=== PATIENT | female | born 1965 | race Caucasian/White ===

== ENCOUNTER 2025-01-28 17:50 | Outpatient (REF) | payer OTHER, SELFPAY ==
--- NOTE | ~2025-01-28 | MR_ITS ---
EXAMINATION: MR BRAIN WITHOUT CONTRAST CLINICAL INFORMATION: MS monitor COMPARISON: None available. TECHNIQUE: MRI of the brain was obtained using routine sequences without contrast. FINDINGS: No restricted diffusion. No acute intracranial hemorrhage, mass effect, midline shift, hydrocephalus or herniation. Bilateral, multifocal, patchy, perpendicularly oriented to the corpus callosum deep periventricular white matter hyperintense T2 FLAIR signal involving centrum semiovale and metzger radiata both cerebral hemispheres and to a lesser extent shelli and right middle cerebral peduncle. Delgado-white matter differentiation is normal. Craniocervical junction is intact with normal position of the cerebellar tonsils. Sellar/suprasellar region demonstrated no signal abnormality or gross masses. Flow-void signal within the main cerebral vessels is normal. Prominence of the extra-axial CSF spaces cerebral sulci and ventricles. MR/MR head/brain wo con IMPRESSION: Bilateral extensive supratentorial and to a lesser extent infratentorial compartment demyelinating plaques. No acute brain abnormality.. Electronically signed by: César Koch MD 01/29/2025 07:03 AM EDT
--- NOTE | ~2025-01-28 | MR_ITS ---
EXAMINATION: MR CERVICAL SPINE WITHOUT CONTRAST CLINICAL INFORMATION: MS monitor COMPARISON: None available. TECHNIQUE: MRI of the cervical spine was obtained using routine sequences without contrast. FINDINGS: No bone marrow STIR signal abnormality. Craniocervical junction is intact with normal position of the cerebellar tonsils. Multifocal, patchy, hyperintense T2 STIR signal abnormality throughout the shelli, medulla oblongata, and cervical spinal cord and posteriorly extending to the upper thoracic spinal cord. These signal abnormality is scattered in random involving the ventral, lateral and dorsal aspect of the spinal cord. Multilevel disc desiccation decreased intervertebral disc height pronounced at C5-6. There is a 1 mm anterolisthesis C4-5 and C6-7. There is buckling deformity of the dorsal aspect of the thecal sac secondary to hypertrophy of the ligamentum flavum at C5-6 and C6-7. C2-3: Right-sided disc osteophyte compresses formation. No central spinal canal or neuroforamina stenosis. C3-4: Broad-based disc osteophyte compresses formation. No central spinal canal or neuroforamina stenosis. C4-5: Broad-based disc osteophyte complex formation without central spinal canal or neuroforamina stenosis. C5-6: Left subarticular disc osteophyte complex formation without central spinal canal stenosis. Left neural foramen narrowing on a degenerative basis. C6-7: Broad-based disc osteophyte complex formation. No central spinal canal stenosis. Bilateral neuroforamina narrowing left greater than the right side. Bilateral small perineural cysts. C7-T1: No central spinal canal or neuroforamina stenosis. No prevertebral compartment hematoma, mass or fluid collection. Flow-void signal within the main vessels is normal. Left vertebral artery is slightly dominant. There is a 10 mm mixed signal abnormality nodular lesion in the posterior left thyroid lobe.. MR/MR cervical spine wo con IMPRESSION: Extensive and diffuse demyelinating plaques throughout brainstem and spinal cord. Multilevel cervical spondylosis, pronounced at C5-6 and C6-7 levels resulting in left neuroforamina narrowing. Electronically signed by: César Koch MD 01/29/2025 07:12 AM EDT
--- OUTSIDE RECORDS SUMMARY | 2025-01-28 19:28 | XMS_ITS | Clinical Summary ---
Author Organization [facility] Address [address] [place] [id number] Care Team Providers Care Customer Development Manager Name Role Phone Lucina Keene MD Primary Care Provider [phone] Allergies No known active allergies Medications GILENYA 0.5 mg capsule 9 Active diphenhydrAMINE (UNISOM SLEEPGELS) 50 mg capsule Unisom Sleepgels Active vitamin X61-[id number] acid 0.5-1 mg tablet Vitamin B12 Ac tive cholecalciferol , vitamin D3, (VITAMIN D3) 1,000 unit capsule Vitamin D3 Active multivit-minera ls-ferrous fum (MULTI VITAMIN) 9 mg iron/15 mL liquid Multi Vitamin gnc active pack Active magnesium oxide 200 mg tablet,chewable magnesium Acti ve coenzyme Q10 200 mg/gram powder Take 100 mg by mouth. Active biotin 1 mg capsule Take by mouth. Activ e Social History Tobacco Use Types Packs/Day Years Used Date Smoking Tobacco: Former Smokeless Tobacco: Former Alcohol Use Standard Drinks/Week Comments Yes 0 (1 standard drink = 0.6 oz pur e alcohol) rarely Comments No Sex and Gender Information Value Date Recorded Sex Assigned at Not on file Legal Sex Female 12:50 PM EDT Gender Identity Not on file Sexual Orientation Not on file Last Filed Vital Signs Vital Sign Reading Time Taken Comments Blood Pressure 102/70 08/08/2018 9:44 AM EDT Pulse 73 08/08/2018 9:44 AM EDT Temperature - - Respiratory Rate - - Oxygen Saturation - - Inhaled Oxygen Concentration - - Weight 61.2 kg (135 lb) 08/08/2018 9:44 AM EDT Height 177.8 cm (5' 10 ) 08/08/2018 9:44 AM EDT Body Mass Index 19.37 08/08/2018 9:44 AM EDT Plan of Treatment Health Maintenance Due Date Last Done Comments Breast Cancer Screening 1964 CT Colonography 1964 Colonoscopy 1964 Colorectal Cancer Screening 1964 FIT-DNA (Cologuard) 1964 FIT 1964 FOBT 1964 Flex Sigmoidoscopy - 5y 1964 HIV Screening 1964 DTaP,Tdap,and Td Vaccines (1 - Tdap) 1982 Pap Smear 1985 Cervical Cancer Screening 1994 HPV/Cotest 1994 Pneumococcal Vaccine, 50+ Ye ars (1 of 1 - PCV) 2014 Zoster Vaccines (1 of 2) 2014 COVID-19 Vaccine (1 - 2023-2 5 season) 2025 Influenza Vaccine (#1) 2025 HPV Vaccines Aged Out No longer eligi ble based on patient's age to complete this topic Hepatitis A Vaccines Aged Out No long er eligible based on patient's age to complete this topic MMR Vaccines Aged Out No longer eligi ble based on patient's age to complete this topic Meningococcal Vaccine Aged Out No emmanuel mychal eligible based on patient's age to complete this topic Insurance [facility] Care Teams Customer Development Manager Relationship Specialty Start Date End Date Lucina Keene MD [address] [place] [id number] PCP - General Internal Medicine 08/07/18
--- OUTSIDE RECORDS SUMMARY | 2025-01-28 19:28 | XMS_ITS | Clinical Summary ---
Author Organization [facility] Address [address] [place] [address] Care Team Providers Care Industrial Equipment Mechanic Name Role Phone Jhonatan Resendez MD Primary Care Provider [phone] Allergies No known active allergies Medications Medication Sig Dispensed Refills Start Date End Date Status DOXYLAMINE SUCCINATE, SLEEP, PO Take by mouth. 0 Active Melatonin 1 MG TABS tablet Take 10 tablets (10 mg total) by mouth every night at bedtime. 0 Active Probiotic Product (PROBIOTIC DAILY PO) Take by mouth. 0 Active COENZYME Q-10 PO Take 100 mg by mouth. 0 Active cholecalciferol (VITAMIN D3) 1000 UNITS tablet Take 5 tablets (5,000 Units total) by mouth daily. 0 Active vitamin B-12 (CYANOCOBALAMIN) 100 MCG tablet Take 0.5 tablets (50 mcg total) by mouth daily. 0 Active Grimes-3 Fatty Acids (OMEGA 3 PO) Take by mouth. 0 Active magnesium citrate 1.745 GM/30ML SOLN oral solution Take 300 mL by mouth once. 0 Active Biotin 1 MG CAPS Take by mouth. 0 Acti ve Ascorbic Acid 100 MG CHEW Chew by mouth. 0 Active solifenacin (VESICARE) 5 MG tablet Take 1 tablet (5 mg total) by mouth two hours before bedtime. After 1 month, increase dose to 2 tablets (10 mg total) by mouth two hours before bedtime. 90 tablet 1 12/12/2023 Active Fingolimod HCl 0.5 MG CAPSIndications:Mult iple sclerosis (HCC) TAKE 1 CAPSULE BY MOUTH DAILY PLEASE GET LABS FOR FUTURE REFILLS 30 capsule 0 03/05/2024 Active Active Problems Problem Noted Date Diagnosed Date Anxiety 06/13/2020 Family history of malignant neoplasm of ovary Herpes zoster 12/19/2019 Multiple sclerosis 06/14/2016 Tingling sensation Overview: legs (bileteral) when I look my head down. Family History Medical History Relation Name Comments Heart attack Father Shan Wade Multiple sclerosis Maternal Aunt Cristin Cancer Mother Aud Relation Name Status Comments Father Shan Wade Alive Maternal Aunt [place] Mother Aud Sister Rowena Alive Social History Tobacco Use Types Packs/Day Years Used Date Smoking Tobacco: Former Smokeless Tobacco: Never Alcohol Use Standard Drinks/Week Comments Yes 0 (1 standard drink = 0.6 oz pur e alcohol) sometimes Sex and Gender Information Value Date Recorded Sex Assigned at Not on file Gender Identity Not on file Sexual Orientation Not on file Job Start Date Occupation Industry Not on file Not on file Not on file Last Filed Vital Signs Vital Sign Reading Time Taken Comments Blood Pressure 106/70 11/23/2023 10:30 AM EDT Pulse 65 11/23/2023 10:30 AM EDT Temperature 36.1 C (97 F) 11/23/2023 10:30 AM EDT Respiratory Rate 16 11/12/2018 2:12 PM EDT Oxygen Saturation 99% 09/20/2017 2:2 4 PM EDT Inhaled Oxygen Concentration - - Weight 59 kg (130 lb) 11/23/2023 10:30 AM EDT pt declined taking a weight, pt gave last known weight Height 175.3 cm (5' 9 ) 11/23/2023 10:3 0 AM EDT Body Mass Index 19.2 11/23/2023 10:30 AM EDT Plan of Treatment Health Maintenance Due Date Last Done Comments Hepatitis C Screening 1964 COVID-19 Vaccine (#1) 1964 Depression Screening 1976 Preventative Health Evaluation 1982 DTap / Tdap / Td (1 - Tdap) 1983 Cervical Cancer Screening (P ap Smear) 1985 Colon Cancer Screening (Colonoscopy) 2009 Breast Cancer Screening (Mammogram) 2014 Shingrix-Zoster Vaccine (1 of 2) 2014 Influenza Vaccine (#1) 2025 RSV Adult > 60+ Yrs or Pregn ant (1 - 1-dose 75+ series) 2039 Hepatitis B Vaccines Aged Out No long er eligible based on patient's age to complete this topic Pneumococcal Vaccine Aged Out No long er eligible based on patient's age to complete this topic RSV Ped < 20 months Aged Out No longe r eligible based on patient's age to complete this topic Care Teams Industrial Equipment Mechanic Relationship Specialty Start Date End Date Jhonatan Resendez MD PCP - General Family Medicine 02/10/16
== END 2025-01-28 17:51 | disposition home or self-care (01) ==
LOC: HO.MRI 17:50
PROVIDERS: Visit Provider Student in an Organized Health Care Education/Training Program
DX: G35 Multiple sclerosis (principal)
CPT/HCPCS: 70551; 72141

== ENCOUNTER → 2025-01-28 18:00 | Outpatient (BNV) | payer OTHER, SELFPAY | PROVIDERS: Visit Provider Radiology Diagnostic Radiology | DX: M47.22 Other spondylosis with radiculopathy, cervical region (principal); G35 Multiple sclerosis | CPT/HCPCS: 70551; 72141 ==

== ENCOUNTER 2025-05-05 11:24 | Outpatient (AMB) | payer OTHER, SELFPAY ==
--- NOTE | 2025-05-05 11:26 | A.OFFPC_ITS ---
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 Multiple Sclerosis: The patient was diagnosed with multiple sclerosis approximately 10 years ago after presenting with double vision when looking to the left. An MRI confirmed the diagnosis at that time. She has been asymptomatic since the initial event, except for urinary symptoms, and reports no disease advancement. She has been taking fingolimod (Gilenya) for about 8 years, starting a couple of years after her diagnosis. There is a significant family history of MS, with both her maternal and paternal aunts affected. Urinary Incontinence: The patient experiences urinary leakage, particularly when running, which she considers to be her only active symptom of MS. She also reports nocturia, waking at least six times per night to urinate. She was previously evaluated by a urologist and a urogynecologist. She was offered medication and bladder Botox injections but declined both treatments due to concerns about potential side effects, including the risk of urinary retention requiring catheterization. Hand Tremor: The patient reports the new onset of a slight shake in her left hand, which started a couple of weeks ago. She is a coffee drinker but reports no change in her consumption amount. Chronic Insomnia: The patient takes Unisom for sleep and has been doing so for many years out of habit. With the medication, she reports sleeping 8 hours per night. She had a sleep study performed approximately 8 years ago. Constipation: For bowel regularity, she takes a yellow powder supplement ordered from a natural remedy provider. Surgical History: - History of cosmetic surgeries, includi ng nose and breast procedures. Medications: - Fingolimod (Gilenya) 0.5 mg for multip le sclerosis. - Unisom for sleep, taken by habit. - Yellow powder supplement for bowel reg ularity. Social History: - Employment: Works as a [employer]. - Substance use: Formerly smoked for 15- 20 years and quit 20 years ago. - She denies any history of illicit drug use. - She is a coffee drinker. - Family status: She is and has no children. - Exercise: Reports being very athletic and runs six miles in the morning. - Spiritual practices: Meditates, prays, and gives online seminars on spiritual philosophy. Family History: - Ovarian cancer: Mother and grandmother both of ovarian cancer. - Multiple sclerosis: Both a maternal au nt and a paternal aunt have MS. - Colon cancer: Denies any family histor y of colon cancer. Diagnostic Results: - Mammogram: Recent mammogram results we re normal. - Sleep study: Performed approximately 8 years ago. Past Medical History - Multiple sclerosis, diagnosed approxim ately 10 years ago. - Denies history of hypertension, diabet es, or seizures. - No hospitalizations other than for cos metic surgery. - History of smoking for 15-20 years, qu it 20 years ago. - Sleep study performed about 8 years ag o. Health Maintenance - A referral will be placed for a gyneco logist consultation. - A referral will be placed for a tradit ional colonoscopy, as per patient preference. - Comprehensive blood work will be done today, including a complete blood count, comprehensive metabolic panel, magnesium, thyroid panel, HbA1c, vitamin B12, folate, vitamin D, and screening for hepatitis C, HIV, and syphilis. - The patient will follow up in two week s to review the lab results. [facility] Medical History (Updated 05/05/25 @ 12:58 by Juan Carey MD) Thyroid nodule Elevated liver enzymes Multiple sclerosis Family History Mother No problems noted. Father No problems noted. Social History Housing: House Patient Tobacco Use Status: Former Tobacco user e-Cigarette/Vaping Use: Never Used service: No Current occupational status: employed Cognitive needs: No Hearing needs: No Vision needs: Yes (glasses) Questionnaire PHQ-9 Over the last 2 weeks, how often have you been bothered by any of the following problems? 1. Little interest or pleasure in doing things: not at all 2. Feeling down, depressed, or hopeless: not at all 3. Trouble falling or staying asleep, or sleeping too much: not at all 4. Feeling tired or having little energy: not at all 5. Poor appetite or overeating: not at all 6. Feeling bad about yourself - or that you are a failure or have let yourself or your family down: not at all 7. Trouble concentrating on things, such as reading the newspaper or watching television: not at all 8. Moving or speaking so slowly that other people could have noticed. Or the opposite - being so fidgety or restless that you have been moving around a lot more than usual: not at all 9. Thoughts that you would be better off or of hurting yourself in some way: not at all Total score: 0 Depression Screening Interpretation: Negative Depression Screening Done: Yes Source: Developed by Drs. Russel Joya, Mckayla Junior, Ilia Howard and colleagues, with an educational [place] from [employer]. Thrive Questionnaire I am a: Patient What is your living situation today?: I have a steady place to live Within the past 12 months, did the food you bought not last and you didn't have the money to get more?: Never true Within the past 12 months, did you worry whether your food would run out before you got money to buy more?: Never true Do you have trouble paying for medicines?: No Do you have trouble getting transportation to medical appointments?: No Do you have trouble paying your heating and electricity bill?: No Do you have trouble taking care of your child, family member or friend?: No Are you currently unemployed and looking for a job?: No Are you interested in more education?: No Please select the resources that you would like help with: None Currently or been in a relationship where the following occur: No concerns reported THRIVE Score: 0 AUDIT C Alcohol Use Questionnaire (AUDIT-C) 1. How often do you have a drink containing alcohol?: Never Total Score: 0 CHALO-7 AMB Questionnaire CHALO-7 Feeling nervous, anxious, or on edge: 0 = Not at all Not being able to stop or control worryin = Not at all Worrying too much about different things: 0 = Not at all Trouble relaxin = Not at all Being so restless that it is hard to sit still: 0 = Not at all Becoming easily annoyed or irritable: 0 = Not at all Feeling afraid as if something awful might happen: 0 = Not at all Total CHALO-7 score (0-4 normal; 5-9 mild; 10-14 moderate; 15-21 severe): 0 Source: Developed by Drs. Russel Joya, Mckayla Junior, Ilia Howard and colleagues, with an educational [place] from [employer]. Review of Systems Narrative Review of Systems - Neurological: Reports new onset of a slight tremor in the left hand for the past two weeks. - She has a history of double vision. - She is otherwise asymptomatic from her multiple sclerosis. - Genitourinary: Reports urinary incontinence, particularly with exertion like running, and nocturia requiring her to wake at least six times a night. - Gastrointestinal: Reports regular bowel movements with the use of a supplement. - Psychiatric/Sleep: Reports sleeping well with medication taken by habit. - Endocrine: Mentions a thyroid nodule. - Constitutional: Denies hypertension and diabetes. 10-point ROS reviewed and negative except as noted in HPI Physical exam (Primary Care) Tobacco/Smoking Status: Tobacco use Status Tobacco use date assessed 05/05/25 05/05/25 11:29 Patient Tobacco Use Status Never used Tobacco 05/05/25 11:29 e-Cigarette/Vaping Use Never Used 05/05/25 11:29 PHQ-9: PHQ-9 Score PHQ-9: Total score 0 05/05/25 11:29 Depression Screening Interpretation: Negative Currently or been in a relationship where the following occur: No concerns reported Narrative Physical Exam General: Well-appearing, in no acute distress. Vital signs: Within normal limits. HEENT: Normocephalic, atraumatic. PERRLA, EOMI. Conjunctiva clear, sclera anicteric. Oropharynx clear, mucous membranes moist. TMs intact bilaterally. Neck: Supple, no lymphadenopathy, no thyromegaly, no JVD or carotid bruits. Cardiovascular: RRR, normal S1/S2, no murmurs, rubs, or gallops. Peripheral pulses 2+ and symmetric. No edema. Respiratory: Lungs clear to auscultation bilaterally, no wheezes, rales, or rhonchi. Normal effort. Abdomen: Soft, non-tender, non-distended. Normoactive bowel sounds. No hepatosplenomegaly, no masses. MSK: Full range of motion, no joint swelling or deformity. Normal gait. Skin: Warm, dry, intact. No rashes, lesions, or pallor. Neuro: Alert and oriented x3. Cranial nerves II-XII intact. Strength 5/5 throughout. Sensation intact. Reflexes 2+ symmetric. Normal coordination and gait. Slight tremor noted in the left hand. Psych: Appropriate mood and affect. Normal judgment and insight. Coding Level of Care Code New Pt Level 4 (96135) Add On Problem Visit Only Diagnoses Multiple sclerosis G35.D Screening for malignant neoplasm of cervix Z12.4 Urinary incontinence R32 Tremor of hand R25.1 Chronic insomnia F51.04 Constipation K59.00 Assessment & Plan Assessment & Plan (1) Multiple sclerosis: Code(s): G35.D - Multiple sclerosis, unspecified Category: Medical (2) Screening for malignant neoplasm of cervix: Code(s): Z12.4 - Encounter for screening for malignant neoplasm of cervix Category: Medical (3) Urinary incontinence: Code(s): R32 - Unspecified urinary incontinence Category: Medical (4) Tremor of hand: Code(s): R25.1 - Tremor, unspecified Category: Medical (5) Chronic insomnia: Code(s): F51.04 - Psychophysiologic insomnia Category: Medical (6) Constipation: Code(s): K59.00 - Constipation, unspecified Category: Medical Plan Consent The risks, benefits, and alternatives for colon cancer screening were discussed, including an at-home stool test (Cologuard) and a traditional colonoscopy. The patient verbalized understanding and consented to proceed with a traditional colonoscopy. The patient also consented to comprehensive blood work to be performed today. Additionally, the patient will complete and sign an authorization form for the use and disclosure of medical records to obtain her past records from the [facility]. Patient was informed and verbally consented to the use of an ambient scribe for clinic note documentation during this visit. Plan 1. Multiple Sclerosis - The patient will continue her current medication, fingolimod 0.5 mg, for her well-controlled and largely asymptomatic MS. - The new-onset hand tremor will be monitored, taking into account it could be related to MS. 2. Urinary Incontinence - This is considered a chronic symptom of her MS. - The patient has previously declined pharmacologic and procedural treatments due to side effect concerns, and no new interventions are planned at this time. - Further discussion will occur at the follow-up visit. 3. Hand Tremor - The patient is advised to monitor the slight hand shake. - The possibility of the tremor being related to caffeine intake was discussed. Discussion Notes This was a first-time visit to [facility] with this 60-year-old female. I explained my plan to order comprehensive labs to get a full review of her general health and establish a baseline, including a CBC, CMP, magnesium, thyroid function, HbA1c, vitamin levels, and infectious disease screening. We discussed her need for preventative screenings, and I will place referrals for a sharepoint application developer and a colonoscopy. I educated her on the options for colon cancer screening, and she elected to proceed with a traditional colonoscopy. We also discussed her new hand tremor, and I advised her to monitor it, noting the potential relation to caffeine intake. I arranged for a follow-up appointment in two weeks to review all the results and discuss next steps in her care. I provided her with a medical records release form to complete so that my office can request her prior records. Patient Instructions - Please go to our lab today to have your blood drawn for the tests we discussed. - You will receive a call to schedule an appointment with a sharepoint application developer for a check-up and a ict programmer for a colonoscopy. - If you do not hear from their offices within two weeks, please call them. - Please fill out the authorization form we provided so we can request your medical records from the [facility]. - Keep an eye on the slight shaking in your left hand and let us know if it changes. - Please return to the clinic in two weeks for a follow-up visit to review your lab results. Medical Decision Making The patient is a 60-year-old female presenting to [facility]. Her primary chronic condition is multiple sclerosis, diagnosed 10 years ago, which is clinically stable and asymptomatic on fingolimod, with the exception of chronic urinary incontinence. The immediate plan focuses on establishing a comprehensive health baseline and addressing overdue preventative care. I have ordered extensive lab work (CBC, CMP, thyroid, A1c, vitamins, infectious disease screen) to assess her overall status and screen for common morbidities. Referrals are placed for a Pap smear and colonoscopy. Despite being average risk for colon cancer, the patient preferred a traditional colonoscopy over a stool- based test, and I have honored this preference. The patient's new-onset left-hand tremor is noted; given its recent onset and her coffee consumption, the initial approach is watchful waiting. Her urinary symptoms are chronic and previously evaluated; she has made an informed decision to decline treatment due to side effect concerns, which I support. A follow-up visit in two weeks will be critical for reviewing results and creating a long- term, patient-centered care plan. Total Time Statement 30 min Total time spent caring for the patient today includes pre-visit chart review, documentation, review of laboratory and diagnostic imaging results, medication reconciliation, medically necessary evaluation, counseling on diagnoses, care coordination, ordering appropriate tests and medications, review of tests performed by other providers, reporting test results to the patient, and communication with other healthcare providers. Orders: Orders Hepatitis B Surface Antigen Today Z13.9 - Encounter for screening, unspecified Syphilis Screen Today Z13.9 - Encounter for screening, unspecified Comprehensive Met. Panel Today Z13.9 - Encounter for screening, unspecified Hepatitis C Antibody Today Z13.9 - Encounter for screening, unspecified Magnesium Today Z13.9 - Encounter for screening, unspecified Vitamin D 25-OH (D2 and D3) Today Z13.9 - Encounter for screening, unspecified Complete Blood Count Auto Diff Today Z13.9 - Encounter for screening, unspecified TSH reflex Free T4 Today Z13.9 - Encounter for screening, unspecified HIV Ab/Ag Today Z13.9 - Encounter for screening, unspecified UA CC w/rflx Micro + Cult Today Z13.9 - Encounter for screening, unspecified Lipid Panel Today Z13.9 - Encounter for screening, unspecified Vitamin B12 and Folate Today Z13.9 - Encounter for screening, unspecified Hemoglobin A1c Today Z13.9 - Encounter for screening, unspecified Hepatitis B Surface Antibody Today Z13.9 - Encounter for screening, unspecified Referrals TELEVISION SERVICER Referral Z12.4 - Encounter for screening for malignant neoplasm of cervix Open Access Screening Colonoscopy Referral Z12.11 - Encounter for screening for malignant neoplasm of colon, Z12.12 - Encounter for screening for malignant neoplasm of rectum
[2025-05-05 11:40] VITALS: BP 103/68; PULSE 76; TEMP 36.6; O2SAT 99; BMI 19.0
--- OUTSIDE RECORDS SUMMARY | 2025-05-05 12:50 | XMS_ITS | Clinical Summary ---
Author Organization [facility] Address [address] [place] [id number] Care Team Providers Care Music Coordinator Name Role Phone Lucina Keene MD Primary Care Provider [phone] Allergies No known active allergies Medications GILENYA 0.5 mg capsule 9 Active diphenhydrAMINE (UNISOM SLEEPGELS) 50 mg capsule Unisom Sleepgels Active vitamin T60-mvkef acid 0.5-1 mg tablet Vitamin B12 Ac [...] of 2) 2014 COVID-19 Vaccine (1 - 2024-2 6 season) 2025 Influenza Vaccine (#1) 2025 HPV [...] patient's age to complete this topic Insurance [facility] Care Teams Music Coordinator Relationship Specialty Start Date End Date Lucina Keene MD [address] [place] [id number] PCP - General Internal Medicine 08/07/18
--- OUTSIDE RECORDS SUMMARY | 2025-05-05 12:50 | XMS_ITS | Clinical Summary ---
Author Organization [facility] Prior to 10/11/24 Address [address] [place] [address] Care Team Providers Care Cutting And Boning Supervisor Name Role Phone Jhonatan Resendez MD Primary Care Provider [phone] Allergies No known active allergies Medications Medication [...] mcg total) by mouth daily. 0 Active [place]-3 Fatty Acids (OMEGA 3 PO) Take by [...] Father Shan Wade Multiple sclerosis Maternal Aunt [place] Cancer Mother Aud Relation Name Status Comments Father Shan Wade Alive Maternal Aunt [place] Mother Aud Sister Rowena Alive Social History [...] age to complete this topic Care Teams Cutting And Boning Supervisor Relationship Specialty Start Date End Date Jhonatan Resendez MD PCP - General Family Medicine 02/10/16
--- OUTSIDE RECORDS SUMMARY | 2025-05-05 12:50 | XMS_ITS ---
Author Name [facility] Organization [facility] Results Test Name/Text Value Interpretation Date Range Source Bilirub Direct SerPl-mCnc 0.1 mg/dL Normal 04/24/2024 0 - 0.2 [facility] ALT SerPl-cCnc 37.0 unit/L Normal 04/24/2024 7 - 52 [facility] Albumin SerPl-mCnc 4.7 g/dL Normal 04/24/2024 3.5 - 5 [facility] AST SerPl-cCnc 39.0 unit/L Normal 04/24/2024 5 - 40 CT [facility] Prot SerPl-mCnc 6.7 g/dL Normal 04/24/2024 6.4 - 8.5 [facility]_ [facility] Albumin/Glob SerPl 2.4 Normal 04/24/2024 [facility] Bilirub SerPl-mCnc 0.4 mg/dL Normal 04/24/2024 0.3 - 1 [facility] ALP SerPl-cCnc 66.0 unit/L Normal 04/24/2024 34 - 104 CT [facility] Globulin Ser Calc-mCnc 2.0 g/dL Below low normal 04/24/2024 2.3 - 3.5 [facility] History of Medication Use Medication Directions Dispensed Refills Start Date End Date Stat fingolimod (GILENYA) 0.5 mg capsule TAKE 1 CAPSULE BY MOUTH DAILY 04/08/2024 active solifenacin (VESICARE) 5 MG tablet Take 1 tablet (5 mg total) by mouth two hours before bedtime. After 1 month, increase dose to 2 tablets (10 mg total) by mouth two hours before bedtime. 12/12/2023 active Fingolimod HCl 0.5 MG CAPS TAKE 1 CAPSULE DAILY PLEASE GET LABS FOR FUTURE REFILLS 11/19/2023 active Fingolimod HCl 0.5 MG CAPS TAKE 1 CAPSULE DAILY 04/25/2023 active Ascorbic Acid 100 MG CHEW Chew by mouth. active Ascorbic Acid 100 MG CHEW Chew by mouth. active ascorbic acid, vitamin C, 100 mg tablet,chewable Chew by mouth. activ e Biotin 1 MG CAPS Take by mouth. active Biotin 1 MG CAPS Take by mouth. active biotin 1 mg capsule Take by mouth. active cholecalciferol (VITAMIN D-3) 25 mcg (1,000 unit) tablet Take 5 tablets (5,000 Units total) by mouth daily. active cholecalciferol (VITAMIN D3) 1000 UNITS tablet Take 5 tablets (5,000 Units total) by mouth daily. active cholecalciferol (VITAMIN D3) 1000 UNITS tablet Take 5 tablets (5,000 Units total) by mouth daily. active COENZYME Q-10 PO Take 100 mg by mouth. active COENZYME Q-10 PO Take 100 mg by mouth. active cyanocobalamin (VITAMIN B-12) 100 mcg tablet Take 0.5 tablets (50 mcg total) by mouth daily. active DOXYLAMINE SUCCINATE, SLEEP, PO Take by mouth. active fish oil/omega-3/vitamin E (OMEGA-3 FATTY ACIDS PO) Take by mouth. active magnesium citrate 1.745 GM/30ML SOLN oral solution Take 300 mL by mouth once. active magnesium citrate 1.745 GM/30ML SOLN oral solution Take 300 mL by mouth once. active magnesium citrate solution Take 300 mL by mouth once. active melatonin 1 mg tablet Take 10 tablets (10 mg total) by mouth every night at bedtime. active Melatonin 1 MG TABS tablet Take 10 tablets (10 mg total) by mouth every night at bedtime. active Melatonin 1 MG TABS tablet Take 10 tablets (10 mg total) by mouth every night at bedtime. active [place]-3 Fatty Acids (OMEGA 3 PO) Take by mouth. active vitamin B-12 (CYANOCOBALAMIN) 100 MCG tablet Take 0.5 tablets (50 mcg total) by mouth daily. active vitamin B-12 (CYANOCOBALAMIN) 100 MCG tablet Take 0.5 tablets (50 mcg total) by mouth daily. active Problems Problem Status Onset Date Problem Type Date of Resolution Source Tingling sensation active 2024-01-01 [address] [facility] Multiple sclerosis active 2016-06-14 ProblemAct [facility] Anxiety active 2020-06-13 ProblemAct [facility] Herpes zoster active 2019-12-19 ProblemAct [facility] Multiple sclerosis active 2016-06-14 ProblemAct [facility] Detrusor overactivity active EncounterDiagnosisAct [facility] MG Family history of malignant neoplasm of ovary active 2020-06-13 ProblemAct [facility] Urinary hesitancy active EncounterDiagnosisAct [facility] Tingling sensation active ProblemAct [facility] Nocturia active EncounterDiagnosisAct [facility] Neurogenic bladder active EncounterDiagnosisAct [facility]THNEMG Encounters Encounter Type Encounter Reason Primary Diagnosis Location Date Ambulatory Multiple Sclerosis Multiple scle rosis (CMS/HCC V24, CMS/HCC V28) [facility] 11/18/2024 Ambulatory Multiple sclerosis Multiple sclerosis [facility] 04/23/2024 Ambulatory Multiple sclerosis Multiple sclerosis [facility] 09/25/2023 Ambulatory Multiple sclerosis Multiple sclerosis [facility] 12/22/2022 Care Team Organization Name Specialty Phone Email Start Date End Da te [facility] JOSEPHINE BUTLER Primary Care 04/27/2024 [facility] JOSEPHINE BUTLER Primary Care 04/23/2024 [facility] 06/03/2023 [facility] JUAN WALLACE Primary Care 12/22/2022
--- OUTSIDE RECORDS SUMMARY | 2025-05-05 12:50 | XMS_ITS | Clinical Summary ---
Author Organization [address] [facility] Building Address [address] [place] [address] Phone Care Team Providers Care Gun Mechanic Name Role Phone Vicky Mata MD Primary Care Prov ider Allergies No known active allergies Medications ubidecarenone (COENZYME Q10 PO) Take 100 mg by mouth. Active ascorbic acid, vitamin C, 100 mg tablet,chewable Chew by mouth. Active biotin 1 mg capsule Take by mouth. Active cholecalciferol (VITAMIN D-3) 25 mcg (1,000 unit) tablet Take 5 tablets (5,000 Units total) by mouth daily. Active cyanocobalamin (VITAMIN B-12) 100 mcg tablet Take 0.5 tablets (50 mcg total) by mouth daily. Active magnesium citrate solution Take 300 mL by mouth once. Active melatonin 1 mg tablet Take 10 tablets (10 mg total) by mouth every night at bedtime. Active fish oil/omega-3/vit klein E (OMEGA-3 FATTY ACIDS PO) Take by mouth. Active fingolimod (GILENYA) 0.5 mg capsuleIndicati ons:Multiple sclerosis TAKE 1 CAPSULE BY MOUTH DAILY 90 capsule 3 09/05/2024 Active Active Problems Problem Noted Date Diagnosed Date Tingling sensation 01/01/2024 Overview (01/01/2024): legs (bileteral) when I look my head down. Anxiety 06/13/2020 Herpes zoster 12/19/2019 Multiple sclerosis 06/14/2016 Encounters Date Type Department Care Team Description 04/03/2025 Telephone [facility] [address] [place] [id number] Ariadna Junior, RN 03/17/2025 Telephone [facility] [address] [place] [phone] Ariadna Junior, RN 02/26/2025 Telephone [facility] [place] [address] [place] [address] Ariadna Junior, ERVIN 02/03/2025 Telephone [facility] [place] [address] [place] [address] Ariadna Junior, RN from Last 3 Months Surgical History Surgery Date Site/Laterality Comments BREAST SURGERY PROCEDURE:BREAST SURGERY NOSE SURGERY PROCEDURE:NOSE SURGERY BREAST RECONSTRUCTION PROCEDURE:BREAST RECONSTRUCTION BREAST ENHANCEMENT SURGERY W IMPLANT Medical History Medical History Date Comments Tingling sensation DX:Tingling s ensation;COMMENT:legs (bileteral) when I look my head down. MS (multiple sclerosis) 07/2014 DX:MS (m ultiple sclerosis) (FORM[facility]LY [facility]) Family History Medical History Relation Name Comments Heart attack Father Shan Wade Cancer Mother Aud Multiple sclerosis Mother's Sister Bradley Relation Name Status Comments Father Shan Wade Alive Mother Aud Mother's Sister Cristin Sister Rowena Alive Social History Tobacco Use Types Packs/Day Years Used Date Smoking Tobacco: Former Smokeless Tobacco: Never Tobacco Cessation:Counseling Given: Not Answered Alcohol Use Standard Drinks/Week Comments Yes 0 (1 standard drink = 0.6 oz pur e alcohol) Comments No Sex and Gender Information Value Date Recorded Sex Assigned at Not on file Legal Sex Female 12:30 AM EST Gender Identity Not on file Sexual Orientation Not on file Last Filed Vital Signs Vital Sign Reading Time Taken Comments Blood Pressure 102/66 11/18/2024 4:00 PM EDT Pulse 64 11/18/2024 4:00 PM EDT Temperature - - Respiratory Rate - - Oxygen Saturation 98% 11/18/2024 4:00 PM EDT Inhaled Oxygen Concentration - - Weight 59 kg (130 lb) 01/07/2025 1:26 PM EDT Height 175.3 cm (5' 9 ) 01/07/2025 1:26 PM EDT Body Mass Index 19.2 01/07/2025 1:26 PM EDT Plan of Treatment Upcoming Encounters Date Type Department Care Team (Late st Contact Info) Description 05/18/2025 3:30 PM EST Office Visit [facility] [address] [place] [address] Marisel Delgado PA [address] [place] [address] Health Maintenance Due Date Last Done Comments Colorectal Cancer Screening: Colonoscopy 1964 DTaP,Tdap,and Td Vaccines (1 - Tdap) 1983 Pneumococcal Vaccine: 50+ Years (1 of 1 - PCV) 2014 Hepatitis C Screening 04/20/2022 Social Influencers of Health Screening 04/20/2022 Depression Screening 05/14/2024 COVID-19 Vaccine ( season) 2025 05/11/2022, 05/11/2021, 09/25/2020, Additional history exists Influenza Vaccine (#1) 2025 04/20/2022 Cervical Cancer Screening: Pap Smear 04/19/2025 04/19/2022 Breast Cancer Screening 01/07/2027 01/08/20 25, 07/02/2020, 03/05/2018 RSV Immunization Adult Patients (1 - 1-dose 75+ series) 2039 HIV Screening Completed 05/09/2016 Zoster Vaccines Completed 04/20/2022, 02/02/2022 HIB Vaccines Aged Out No longer eligi ble based on patient's age to complete this topic HPV Vaccines Aged Out No longer eligi ble based on patient's age to complete this topic Hepatitis A Vaccines Aged Out No long er eligible based on patient's age to complete this topic Hepatitis B Vaccines Aged Out No long er eligible based on patient's age to complete this topic IPV Vaccines Aged Out No longer eligi ble based on patient's age to complete this topic MMR Vaccines Aged Out No longer eligi ble based on patient's age to complete this topic Meningococcal ACWY Vaccine Aged Out N o longer eligible based on patient's age to complete this topic Meningococcal B Vaccine Aged Out No l onger eligible based on patient's age to complete this topic RSV Immunization Patients Under 20 months Aged Out No longer eligible based on patient's age to complete this topic Varicella Vaccines Aged Out No longer eligible based on patient's age to complete this topic Procedures Procedure Name Priority Date/Time Associated Diagnosis Comments HEPATIC FUNCTION PANEL Routine 03/16/2025 4:25 PM EST Multiple sclerosis Encounter for monitoring immunomodulating therapy MG MAMMO DIGITAL SCREENING W ALBERTO BILAT Routine 01/07/2025 1:49 PM EDT Encounter for screening mammogram for breast cancer PAP SMEAR Routine 04/19/2022 HM HIV SCREENING Routine 05/09/2016 from Last 3 Months or Most Recently Relevant to Health Maintenance Results * (ABNORMAL) Hepatic function panel (03/16/2025 4:25 PM EST) Total Protein 6.9 6.1 - 8.1 g/dL [facility] Albumin 4.5 3.6 - 5.1 g/dL [facility] Globulin 2.4 1.9 - 3.7 g/dL (calc) [facility] Albumin/Globulin Ratio 1.9 1.0 - 2.5 (calc) [facility] Bilirubin Total 0.4 0.2 - 1.2 mg/dL [facility] Bilirubin Direct 0.1 < OR = 0.2 mg/dL [facility] Bilirubin Indirect 0.3 0.2 - 1.2 mg/dL (calc) [facility] Alkaline Phosphatase 65 37 - 153 U/L [facility] Aspartate aminotransferase (AST) 44(H) 10 - 35 U/L [facility] Alanine Aminotransferase (ALT) 42(H) 6 - 29 U/L [facility] Blood Venous blood specimen / Unknown 03/16/2025 4:25 PM EST 03/16/2025 4:25 PM EST Narrative JULIA GREEN (TALI) - 03/17/2025 9:02 AM EST FASTING:NO FASTING: NO Marisel BELL LAB BLOOD ORDERABLES Final R esult JULIA GREEN (TALI) [facility] [address] [place] [phone] * MG Mammo Digital Screening w Alberto bilat (01/07/2025 1:49 PM EDT) Anatomical Region Laterality Modality Breast Bilateral Mammography 01/07/2025 3:04 PM EDT Impressions 01/08/2025 7:18 AM EDT Limited exam. No mammographic evidence of malignancy. No suspicious interval change. A negative mammogram in the presence of a clinically suspicious palpable abnormality does not preclude the possibility of malignancy or alter the indications for biopsy. ASSESSMENT: BI-RADS 2: BENIGN RECOMMENDATION(S): 1: Routine screening mammogram BILATERAL in 1 year. [facility] [address], [address] -------- FINAL REPORT -------- Dictated By: Mike De Luna Dictated Date: 01/07/2025 15:04 ET Assigned Physician: Mike De Luna Reviewed and Electronically Signed By: Mike De Luna Signed Date: 01/08/2025 07:18 ET Workstation ID: [id number] Transcribed By: Self Edit Transcribed Date: 01/07/2025 15:05 ET Narrative 01/08/2025 7:18 AM EDT EXAM: SCREENING MAMMOGRAPHY, BILATERAL HISTORY: SCREENING. No additional history. COMPARISON: 02/01/21, 07/02/20, 03/05/18 TECHNIQUE: Synthesized CC and MLO projections of each breast with implant displacement. Tomosynthesis of each breast in the CC and MLO projections with implant displacement. ADDITIONAL IMAGING: Digital mammography of each breast in the craniocaudal and MLO projections without displacement. Computer-aided detection was employed with the [employer] AI 3-D. TISSUE DENSITY: There are scattered areas of fibroglandular density. (BI-RADS category B) FINDINGS: Opaque implants obscure much of the anatomy and markedly limit exam. There is some calcification of the implant capsule. RIGHT BREAST: No suspicious mass. No suspicious calcification. No distortion. No additional suspicious right breast findings LEFT BREAST: No suspicious mass. No suspicious calcification. No distortion. No additional suspicious left breast findings Procedure Note Mike De Luna MD - 01/08/2025 EXAM: SCREENING MAMMOGRAPHY, BILATERAL HISTORY: SCREENING. No additional history. COMPARISON: 02/01/21, 07/02/20, 03/05/18 TECHNIQUE: Synthesized CC and MLO projections of each breast with implantdisplacement. Tomosynthesis of each breast in the CC and MLO projectionswith implant displacement. ADDITIONAL IMAGING: Digital mammography of each breast in the craniocaudaland MLO projections without displacement. Computer-aided detection was employed with the [employer] AI 3-D. TISSUE DENSITY: There are scattered areas of fibroglandular density.(BI-RADS category B) FINDINGS: Opaque implants obscure much of the anatomy and markedly limit exam.There is some calcification of the implant capsule. RIGHT BREAST: No suspicious mass. No suspicious calcification. No distortion. Noadditional suspicious right breast findings LEFT BREAST: No suspicious mass. No suspicious calcification. No distortion. Noadditional suspicious left breast findings IMPRESSION: Limited exam. No mammographic evidence of malignancy. No suspicious interval change. A negative mammogram in the presence of a clinically suspicious palpableabnormality does not preclude the possibility of malignancy or alter theindications for biopsy. ASSESSMENT: BI-RADS 2: BENIGN RECOMMENDATION(S): 1: Routine screening mammogram BILATERAL in 1 year. [facility] location[facility] at [address], [address] -------- FINAL REPORT -------- Dictated By: Mike De Luna Dictated Date: 01/07/2025 15:04 ET Assigned Physician: Mike De Luna Reviewed and Electronically Signed By: Mike De Luna Signed Date: 01/08/2025 07:18 ET Workstation ID: [id number] Transcribed By: Self Edit Transcribed Date: 01/07/2025 15:05 ET us Self Referral Sppl IMG BI PROCEDURES Final Resul t * Pap smear (04/19/2022) 04/19/2022 Narrative HISTORICAL TESTING LAB RESULTING AGENCY - 04/20/2022 3:51 PM EST [id number] THINPREP PAP, IMAGED: NEGATIVE FOR SQUAMOUS INTRAEPITHELIAL LESION AND MALIGNANCY . ATROPHY. BHASKAR ALCANTAR , EDEN(ASCP) (CASE ELECTRONICALLY SIGNED 04 20 2022) RESULT OF APTIMA HIGH RISK HPV ASSAY: HIGH RISK HPV: NEGATIVE (SEROTYPES 16,18,31,33,35,39,45,51,52,56,58,59,66,68) COMPLETED ON 2022-04-20 ADEQUACY: SATISFACTORY . SOURCE: THINPREP PAP HPV ANY DX: REFLEX 16 AND 18, CERVICAL, IMAGED CLINICAL INFORMATION: HPV ANY DIAGNOSIS. POSTMENOPAUSE, LMP 01/26/11, [Z01.419] Myesha Ramírez DO LAB CYTOLOGY ORDERABLES Final Result HISTORICAL TESTING LAB RESULTING AGENCY * HIV Screening (05/09/2016) Pathologist [facility] [place] HIV Screening abstracted us Historical Provider HEALTH MAINTENANCE Final Result from Last 3 Months or Most Recently Relevant to Health Maintenance Insurance [employer] Care Teams Gun Mechanic Relationship Specialty Start Date End Date Vicky Mata MD [address] [place] [address] [place] [address] PCP - General Internal Medicine 01/15/20
--- OUTSIDE RECORDS SUMMARY | 2025-05-05 12:50 | XMS_ITS | Data Portability ---
Author Organization [place] [facility],, CASSANDRA PAZ MD Address [address] [facility] [address] [place] [address] Care Team Providers Care Wildlife Biology Technician Name Role Phone DEANA CHERY OTHER Assessment No assessment recorded. Plan of Treatment Reminders Order Date Submit Date Provider Last Modified By Organization Details Last Modified Time Details Appointments None recorded. Lab pap test, thinprep, cervical 2020 021 [facility], Cytopathology Service, [address] [place] [address], [address], 1 07:27:48 fecal occult blood, stool 2020 021 [email or web address] 1 In-Office Order, Internal Use Only DO Not Attach Compendium DO Not Attach Compendium, Do Not Delete/merge, [id number] 1 14:06:41 pap test, thinprep, cervical 2019 020 [facility], Cytopathology Service, [address] [place] [address], [address], 0 07:38:03 fecal occult blood, stool 2019 020 In-Office Order, Internal Use Only DO Not Attach Compendium DO Not Attach Compendium, Do Not Delete/merge, [id number] 0 07:38:03 pap test, thinprep, cervical 2018 019 [email or web address] [facility], Cytopathology Service, [address] [place] [address], [address], 9 07:21:55 fecal occult blood, stool 2018 019 [employer] In-Office Order, Internal Use Only DO Not Attach Compendium DO Not Attach Compendium, Do Not Delete/merge, [id number] 9 07:21:55 pap test, thinprep, cervical 2017 018 [facility], Cytopathology Service, [address] [place], [address], 8 13:47:36 fecal occult blood, stool 2017 018 [employer] With In-Office Order, Internal Use Only DO Not Attach Compendium DO Not Attach Compendium, Do Not Delete/merge, [id number] 8 07:42:36 CT + NG DNA, PCR, cervical 2016 017 [facility], [address] [place], [address], 7 07:25:38 wet mount, vaginal 2016 017 [email or web address] In-Office Order, Internal Use Only DO Not Attach Compendium DO Not Attach Compendium, Do Not Delete/merge, [id number] 7 15:21:04 Referral None recorded. Procedures None recorded. Surgeries None recorded. Imaging MAMMO, screening , digital, bilateral 2020 021 [facility] (Mammography), [address] [place], [address], 2 07:43:25 US, breast, unilatera l - 4 mm round density 2 o'clock left breast, 5 cm from nipple. Has breast implants, the mass is superior to the implant. 2020 021 [facility] (Mammography), [address] [place], [address], 1 15:39:34 MAMMO, screening , digital, bilateral 2019 020 [facility] (Mammography), [address] [place], [address], 1 17:06:39 MAMMO, screening , digital, bilateral 2018 019 [facility] (Mammography), [address] [place], [address], 0 07:21:12 MAMMO, screening , digital, bilateral 2017 018 [facility], [address], [facility] [address], [place], [address], 8 17:34:11 Medication Orders fluconazo le 150 mg tablet 2016 017 [id number], [address] [place], [address], 8 14:53:43 Patient TargetsNo targets recorded. Patient Instructions Encounter Date Encounter Id Patient Instructions Last Modified By Organization Details Last Modified Time 11/02/2016 [id number] vaginal yeast infection: care instructions [email or web address] Not available 11/02/2016 16:29:18 multiple scleros is (MS): care instructions [email or web address] Not available 11/02/2016 16:29:18 She is here for follow up of abundant obscuring inflammation on her pap. She has taken two strong antibiotics for dental work recently. She also notes her encapsulated breasts were too tender to have a mammogram the other day. she had a mammo 3 years ago, but now when she tried again she noted they had to terminate the procedure because it was too painful. the silicone implants were noted to be encapsulated on her prior exam here. She is advised to see a plastic surgeon for consultation for this. The letter is printed for her, and a copy sent to Dr. Wood. She has monilia, rx Diflucan. Also a genprobe is taken as the WBC are TNTC on wet obed. Call if any pruritus develops. Not available 11/02/2016 15:20:08 12/04/2017 [id number] self breast exam education Not available 12/04/2017 16:13:02 She is here for annual exam, is doing well. She had breast surgery 6 weeks ago, with Dr. Vargas, to remove her encapsulated breast implants. She is not happy because she feels they are not large enough and there are three ripples. She notes she is not having significant vasomotor symptoms. She does have a many year history of urinating too frequently for at least 8 years. She is seeing a urologist who specializes in MS patients. She takes unisom nightly and also melatonin in order to sleep, she would like to begin ambien. She has been taking sleeping pills for more than 10 years. Note from 10/2016: She also notes her encapsulated breasts were too tender to have a mammogram the other day. she had a mammo 3 years ago, but now when she tried again she noted they had to terminate the procedure because it was too painful. the silicone implants were noted to be encapsulated on her prior exam here. She is advised to see a plastic surgeon for consultation for this. The letter is printed for her, and a copy sent to Dr. Wood. __ She appears to be doing well. She will follow up with Dr. Vargas in regard to her concerns about her post operative appearance. She is advised to get 1500 mg of calcium daily into her diet and supplements combined. We discussed the benefits of adequate vitamin D supplementation to at least 400 units daily, daily aerobic exercise of 30 minutes, and stress reduction. Monthly self breast exam was taught, and stressed, and is advised to call if she discovers any new mass in the breast. Seat belt use for herself and passengers advised. The significant health benefits of becoming and remainig fit, with an optimal BMI, were also discussed. We discussed the potential reduction in chronic discomfort, the diminished risks of hypertension, diabetes, and heart disease with the proper weight management, and improved mobility as she ages. Strategies to reach and maintain her target weight wer discussed in detail, all questions answered. Not available 12/04/2017 16:12:45 12/10/2018 [id number] frequent urinati on: care instructions Not available 12/10/2018 15:41:08 multiple scleros is (MS): care instructions Not available 12/10/2018 15:41:08 She is here for annual exam, is doing well. 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 She has not had menses in 2 eyars. She has nocturia, increased frequency of urination, she believes this is due to her MS, though there could be a component of atrophy as well. She believes it has worsened in the past year. Her MS has been stable, still awaiting the recent MRI results. She has no symptoms. Her vasomotor symptoms are improving slowly. She tried to adriana Dr. Vargas but no roll scale worker would take my case, she had her breast surgery redone in [place] in April, :I, happy with them now. Shehad the textured implants out from over the muscle, put new non teextured implants under the muscle, and did a lift, and she is happy now. Note from 2018: She is here for annual exam, is doing well. She had breast surgery 6 weeks ago, with Dr. Vargas, to remove her encapsulated breast implants. She is not happy because she feels they are not large enough and there are three ripples. She notes she is not having significant vasomotor symptoms. She does have a many year history of urinating too frequently for at least 8 years. She is seeing a urologist who specializes in MS patients. She takes unisom nightly and also melatonin in order to sleep, she would like to begin ambien. She has been taking sleeping pills for more than 10 years. She appears to be doing well. We discussed possible use of the E2 vaginal cream for her atrophy. She is not sure, her perfers I not put anything unnatural in my body. She will read more about this and get back to me for an estrogen consult if she wishes to learn more about it. Discussed her Yellow Powder and advised her to see her PCP and go over the ingredients, she needs to get an Spanish translation from the French ingredients, to be sure it is not a daily laxative that she is taking. She understands and agrees. She is advised to get 1500 mg of calcium daily into her diet and supplements combined. We discussed the benefits of adequate vitamin D supplementation to at least 400 units daily, daily aerobic exercise of 30 minutes, and stress reduction. Monthly self breast exam was taught, and stressed, and is advised to call if she discovers any new mass in the breast. Seat belt use for herself and passengers advised. The significant health benefits of becoming and remainig fit, with an optimal BMI, were also discussed. We discussed the potential reduction in chronic discomfort, the diminished risks of hypertension, diabetes, and heart disease with the proper weight management, and improved mobility as she ages. Strategies to reach and maintain her target weight wer discussed in detail, all questions answered. Not available 12/10/2018 15:42:18 12/19/2019 [id number] shingles: care instructions Not available 12/19/2019 11:15:46 She is here for annual exam, had shingles 3 weeks ago, still healing from it. She is taking an MS med that might impair her immune system, she spoke with her neurologist about this yesterday. It is healing well. Note from 2019: She is here for annual exam, is doing well. 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 She has not had menses in 2 eyars. She has nocturia, increased frequency of urination, she believes this is due to her MS, though there could be a component of atrophy as well. She believes it has worsened in the past year. Her MS has been stable, still awaiting the recent MRI results. She has no symptoms. Her vasomotor symptoms are improving slowly. She tried to adriana Dr. Vargas but no roll scale worker would take my case, she had her breast surgery redone in [place] in April, :I, happy with them now. Shehad the textured implants out from over the muscle, put new non teextured implants under the muscle, and did a lift, and she is happy now. She is advised to try low dose benadryl to hlep her to sleep at he rash is prurituc. She does not have a PCP at this time, is advised to get a PCP, she had been treated at the walk in clinic. She appears to be doing well. Return for annual next year, or prn any issues. Not available 12/19/2019 11:19:44 01/27/2021 [id number] learning about healthy weight Not available 01/27/2021 14:06:41 She is here for annual exam, has MS, is stable. She had her silicone breast implants removed and replace in 2018, she had some issues, now after repeat surgery that is resolved. Note from 2020: She is here for annual exam, had shingles 3 weeks ago, still healing from it. She is taking an MS med that might impair her immune system, she spoke with her neurologist about this yesterday. It is healing well. ___ She appears to be doing well. There is a new, 4 mm density left breast, check sonogram of this area. She is shown the area in question and she has never felt that previously, she notes., Advised to recheck it regularly and call if it enlarges. Will also check sonogram. She is advised to get 1500 mg of calcium daily into her diet and supplements combined. We discussed the benefits of adequate vitamin D supplementation to at least 400 units daily, daily aerobic exercise of 30 minutes, and stress reduction. Monthly self breast exam was taught, and stressed, and is advised to call if she discovers any new mass in the breast. Not available 01/27/2021 14:13:42 Reason for Referral None Reported. Results Created Date Observation Date Name Description Value Unit Range Abnormal Flag Note LastModifiedBy Organization Detail LastModifiedTime 01/28/20 21 01/27/2021 fecal occul t blood , stool Occult Blood negati ve Not Available In-Office Order Internal Use Only DO Not Attach Compendium DO Not Attach Compendium, Do Not Delete/merge, [id number] 01/27/2021 13:46:18 12/11/19 19 12/10/2018 fecal occul t blood , stool Occult Blood negati ve Not Available In-Office Order Internal Use Only DO Not Attach Compendium DO Not Attach Compendium, Do Not Delete/merge, [id number] 12/10/2018 14:13:07 12/05/19 18 12/04/2017 fecal occul t blood , stool Occult Blood negati ve Not Available In-Office Order Internal Use Only DO Not Attach Compendium DO Not Attach Compendium, Do Not Delete/merge, [id number] 12/04/2017 15:00:51 11/03/1911/02/2016 wet desirae alvarez Clue Cells negati ve Not Available In-Office Order Internal Use Only DO Not Attach Compendium DO Not Attach Compendium, Do Not Delete/merge, [id number] 11/02/2016 15:12:44 11/03/1911/02/2016 wet mount desirae Trichomonas negati ve Not Available In-Office Order Internal Use Only DO Not Attach Compendium DO Not Attach Compendium, Do Not Delete/merge, [id number] 11/02/2016 15:12:44 11/03/1911/02/2016 wet mount desirae Hyphae positi ve Not Available In-Office Order Internal Use Only DO Not Attach Compendium DO Not Attach Compendium, Do Not Delete/merge, [id number] 11/02/2016 15:12:44 11/03/1911/02/2016 wet mount , vagin al atrophic epithelium positi ve Not Available In-Office Order Internal Use Only DO Not Attach Compendium DO Not Attach Compendium, Do Not Delete/merge, [id number] 11/02/2016 15:12:44 11/03/19 17 11/02/2016 wet mount , vagin al other WBC TNTC Not Available In-Office Order Internal Use Only DO Not Attach Compendium DO Not Attach Compendium, Do Not Delete/merge, [id number] 11/02/2016 15:12:44 11/01/19 17 10/31/2016 fecal occul t blood , stool Occult Blood positi ve Not Available In-Office Order Internal Use Only DO Not Attach Compendium DO Not Attach Compendium, Do Not Delete/merge, [id number] 10/31/2016 14:28:30 11/01/19 17 10/31/2016 pap, LB [id number] ThinP rep Pap, Image d: NEGAT CONOR FOR SQUAM OUS INTRA EPITH ELIAL LESIO N AND MALIG CHANTELL . Abund ant parti ally obscu ring acute infla mmato ry cells are prese nt. Delma Hamilton, CT( CP) (Case elect trish escobar eden d 11 01 2016) ADEQU ACY: Satis facto ry. SOURC E: ThinP rep Pap HPV IF ASCUS , Cervi zahra, Image d: CLINI ZAHRA INFOR MATIO N: HPV If Diagn osis of ASCUS . LPS neg. z77.9 , z01.4 19 Not Available [facility], Cytopathology Service [address] [place], [address], 11/01/2016 15:36:04 11/03/19 17 11/02/2016 CT + NG DNA, PCR, cervi zahra comments [facility] [address] [facility] [place] [address] [phone] Not Available [facility] [address] [place], [address], 11/08/2016 04:22:24 11/03/19 17 11/02/2016 CT + NG DNA, PCR, cervi zahra chlamydia DNA swab NEGATI VE negati ve Not Available [facility] [address] [place], [address], 11/08/2016 04:22:24 11/03/19 17 11/02/2016 NG, DNA, qual, PCR, unspe cifie d speci men comments [facility] [address] [facility] [place] [address] [phone] Not Available [facility] [address] [place], [address], 11/08/2016 04:22:26 11/03/19 17 11/02/2016 NG, DNA, qual, PCR, unspe cifie d speci men GC DNA swab NEGATI VE negati ve Not Available [facility] [address] [place], [address], 11/08/2016 04:22:26 12/05/19 18 12/04/2017 pap, LB [id number] ThinP rep Pap, Image d: NEGAT CONOR FOR SQUAM OUS INTRA EPITH ELIAL LESIO N AND MALIG CHANTELL . React conor cellu lar stewart es. Alison St , CT( CP) (Case Scree yaz 12 05 2017) Gracia Schmitz M.D., Patho logis t (Case elect trish escobar eden d 12 06 2017) ADEQU ACY: Satis facto ry. Endoc ervic al/tr ansfo rmati on zone compo nent absen t. SOURC E: ThinP rep Pap HPV IF ASCUS , Cervi zahra, Image d: CLINI ZAHRA INFOR MATIO N: HPV If Diagn osis of ASCUS . Z12.4 , V72.3 1, Z01.4 19, LPS Neg Not Available [facility], Cytopathology Service [address] [place], [address], 12/10/2017 13:47:36 12/11/19 19 12/10/2018 pap, LB [id number] ThinP rep Pap, Image d: NEGAT CONOR FOR SQUAM OUS INTRA EPITH ELIAL LESIO N AND MALIG CHANTELL . Atrop hy. Brielle lyman , CT( CP) (Case elect trish oneillherbert eden d 12 12 2018) ADEQU ACY: Satis facto ry . SOURC E: ThinP rep Pap HPV IF ASCUS , Cervi zahra, Image d CLINI ZAHRA INFOR MATIO N: HPV If Diagn osis of ASCUS . LPS NEG [Z12. 4, Z01.4 19] Not Available [facility], Cytopathology Service [address] [place], [address], 12/12/2018 16:30:55 12/19/19 20 12/19/2019 pap, LB [id number] ThinP rep Pap, Image d: NEGAT CONOR FOR SQUAM OUS INTRA EPITH ELIAL LESIO N AND MALIG CHANTELL . Atrop hy. [address]ison [address] , CT( CP) (Case elect trish escobar eden d 12 23 2019) ADEQU ACY: Satis facto ry . SOURC E: ThinP rep Pap HPV IF ASCUS , Cervi zahra, Image d CLINI ZAHRA INFOR MATIO N: HPV If Diagn osis of ASCUS . LPS neg, z12.4 , z01.4 19 Not Available [facility], Cytopathology Service [address] [place], [address], 12/23/2019 12:16:32 12/19/19 20 12/19/2019 fecal occul t blood , stool Occult Blood negati ve Not Available In-Office Order Internal Use Only DO Not Attach Compendium DO Not Attach Compendium, Do Not Delete/merge, [id number] 12/19/2019 10:52:06 01/28/20 21 01/27/2021 PAP1C ASE [id number] ThinP rep Pap, Image d: NEGAT CONOR FOR SQUAM OUS INTRA EPITH ELIAL LESIO N AND MALIG CHANTELL . Atrop hy. Ralph marte , CT( CP) (Case elect trish escobar eden d 02 08 2021) ADEQU ACY: Satis facto ry Endoc ervic al/tr ansfo rmati on zone compo nent prese nt. SOURC E: ThinP rep Pap HPV IF ASCUS , Cervi zahra, Image d CLINI ZAHRA INFOR MATIO N: HPV If Diagn osis of ASCUS . LPS 0 NEG [Z12. 4] Not Available [facility], Cytopathology Service [address] [place], [address], 02/08/2021 13:31:12 11/04/19 17 11/01/2016 MAMMO , scree fabio, digit al, bilat eral No observ ation record ed. [address] [facility] [address] [place], [address], 11/03/2016 13:54:25 03/05/20 18 03/05/2018 MAMMO , scree fabio, digit al, bilat eral No observ ation record ed. [address] [facility] [address] [place], [address], 03/06/2018 08:28:43 07/02/19 21 07/02/2020 MAMMO , scree fabio, digit al, bilat eral No observ ation record ed. [address] [facility]osit Imaging Dept [address] [place], [address], 07/04/2020 09:13:07 02/02/20 21 02/01/2021 US, breas t, unila teral No observ ation record ed. [address] [facility] (Mammography) [address] [place], [address], 02/07/2021 12:18:06 02/02/20 21 02/01/2021 MAMMO , diagn ostic , digit al, unila teral No observ ation record ed. [email or web address] (Mammography) [address] [place], [address], 02/07/2021 11:13:39 Result Notes None recorded. Problems Name Problem SNOMED Code Status Onset Date Resolution Date Notes Provider Name and Address Organization Details Recorded Time Increased frequency of urination 738901936 Active Cassandra Paz MD [address] [facility], [address], [place], [address], [place] [facility], 4 15:56:17 Family history of malignant neoplasm of ovary 782176941 Active Cassandra Paz MD [address], [place], [address], [place] [facility], 4 08:19:06 Anxiety 20394306 Active Cassandra Paz MD [address], [place], [address], [place] [facility], 4 15:57:04 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 Silicone Cassandra Paz MD [address], [place], [address], [place] [facility], 7 15:15:58 Herpes zoster 4069253 Active 2019 Holly flores [place] - [facility], 0 10:54:47 Problem Notes None recorded. Procedures Surgical History Date Name Laterality Status Provider Name and Address Organization Details Recorded Time 8 Breast Implants completed Nicole Moore [place] - [facility], 12/10/2018 14:12:23 8 Breast Implants completed Nicole Tompkins in [facility], 12/04/2017 15:00:21 2 Other completed Nicole Tompkins in [facility], 11/04/2013 14:36:07 2 Breast Implants completed Nicole Tompkins in [facility], 11/04/2013 14:36:07 Imaging Results None recorded. Procedure Notes None recorded. Medical Equipment None Reported. Allergies No known drug allergies Medications Name Sig Start Date Stop Date Status Note LastModified by Organization Details LastModified Time nystat/li doca/cvs an/cvs di SWISH WITH 2 TEASPOON SFUL BY MOUTH EVERY 6 HOURS NEEDED active Not Available Not Available No t Available compound drug active Not Available Not Available Not Available amoxicill in 500 mg capsule 10/31 completed Not Available Not Available Not Available doxycycli ne hyclate 100 mg capsule TAKE 1 CAP BY MOUTH 2 TIMES A DAY FOR 7 DAYS. TAKE W/FOOD BUT NOT AT THE SAME TIME DIARY/CA LCIUM 12/10 completed Not Available Not Available Not Available oxybutyni n chloride ER 10 mg tablet,ex tended release 24 hr 12/04 completed Not Available Not Available Not Available fluconazo le 150 mg tablet TAKE 1 TABLET BY AT BEDTIME FOR 1 DAY. 12/04 completed Not Available Not Available Not Available valacyclo vir 1 gram tablet 01/27 completed Not Available Not Available Not Available cephalexi n 250 mg capsule 12/04 completed Not Available Not Available Not Available hydrocodo ne 5 mg-acetam inophen 325 mg tablet 10/31 completed Not Available Not Available Not Available tretinoin 0.025 % topical cream APPLY A SMALL AMOUNT EXTERNAL TO AFFECTED AREAS NIGHTLY active Not Available Not Available No t Available prednison e 20 mg tablet TAKE 2 TABLETS 1 TIME PER DAY FOR 5 DAYS : FIRST DOSE NOW, THEN DAILY IN AM WITH FOOD. 12/10 completed Not Available Not Available Not Available clindamyc in HCl 150 mg capsule 10/31 completed Not Available Not Available Not Available tramadol 50 mg tablet 12/18 completed Not Available Not Available Not Available TobraDex 0.3 %-0.1 % eye ointment APPLY TO RIGHT EYE TWICE A DAY FOR 1 WEEK active Not Available Not Available No t Available amoxicill in 500 mg tablet 12/04 completed Not Available Not Available Not Available ondansetr on 8 mg disintegr ating tablet TAKE 2 TABLETS PRIOR TO SURGERY THEN TAKE 1 TABLET EVERY 6 HOURS NEEDED FOR NAUSEA & VOMITING 12/10 completed Not Available Not Available Not Available amoxicill in 875 mg tablet active Not Available Not Available Not Available lorazepam 0.5 mg tablet 10/31 completed Not Available Not Available Not Available hydrocodo ne 7.5 mg-acetam inophen 325 mg tablet active Not Available Not Available Not Available cephalexi n 500 mg capsule TAKE 1 CAPSULE BY MOUTH 3 TIMES A DAY WITH MEALS 01/27 completed Not Available Not Available Not Available erythromy any 5 mg/gram (0.5 %) eye ointment APPLY 3 TIMES DAILY TO WOUND 01/27 completed Not Available Not Available Not Available oxybutyni n chloride ER 5 mg tablet,ex tended release 24 hr 10/31 completed Not Available Not Available Not Available monteluka st 10 mg tablet TAKE 1 TABLET BY MOUTH EVERY DAY AT NIGHT 12/10 completed Not Available Not Available Not Available hydroxyzi ne HCl 25 mg tablet TAKE 1 TAB BY MOUTH AT BEDTIME. MAY INCREASE TO 2 PILLS AT NIGHT IF NEEDED FOR ANXIETY. 12/10 completed Not Available Not Available Not Available diazepam 10 mg tablet TAKE 1 TABLET BY MOUTH EVERY 12 HOURS NEEDED FOR ANXIETY 12/10 completed Not Available Not Available Not Available ibuprofen 600 mg tablet 12/04 completed Not Available Not Available Not Available ondansetr on 4 mg disintegr ating tablet 12/04 completed Not Available Not Available Not Available fluticaso ne propionat e 50 mcg/actua tion nasal spray,[facility] [employer] SPRAY 2 SPRAYS INTO EACH NOSTRIL EVERY DAY 12/10 completed Not Available Not Available Not Available ipratropi um bromide 21 mcg (0.03 %) nasal spray 12/04 completed Not Available Not Available Not Available diazepam 5 mg tablet 12/04 completed Not Available Not Available Not Available oxycodone 5 mg tablet 12/04 completed Not Available Not Available Not Available neomycin- polymyxin -hydrocor t 3.5 mg-10,000 unit/mL-1 % ear drops,sanchez p 12/10 completed Not Available Not Available Not Available DentaGel 1.1 % PLEASE SEE ATTACHED FOR DETAILED DIRECTIO NS active Not Available Not Available No t Available chlorhexi dine gluconate 0.12 % mouthwash RINSE 1/2 OZ SWISH TWICE A DAY FOR 5 DAYS active Not Available Not Available No t Available magnesium active Not Available Not Amairani ilable Not Available melatonin active Not Available Not Amairani ilable Not Available Aleve active Not Available Not Availa ble Not Available Co Q-10 active Not Available Not Avail able Not Available vitamin E 12/10 completed Not Available Not Available Not Available Laxative natural remedies active she has been taking The Yellow Powder from an natural remedy store in [facility]. She is not sure if it a laxative . Not Available Not Available Not Available Vitamins B Complex active Not Available Not Available No t Available biotin active Not Available Not Availa ble Not Available naltrexon e 12/10 completed low dose Not Available Not Available Not Available Vitamin D3 active Not Available Not Available Not Available Unisom SleepGels active Not Available Not Available No t Available hydrocodo ne 5 mg-acetam inophen 300 mg tablet 12/04 completed Not Available Not Available Not Available hydrocodo ne 7.5 mg-acetam inophen 300 mg tablet TAKE 1 TABLET BY MOUTH EVERY 6 HOURS NEEDED PAIN active Not Available Not Available No t Available ProAir HFA 90 mcg/actua tion aerosol inhaler INHALE 2 PUFFS EVERY 4 HOURS FOR 7-10 DAYS NEEDED FOR SHORTNES S OF BREATH, COUGH OR WHEEZE 12/10 completed Not Available Not Available Not Available Probiotic active Not Available Not Amairani ilable Not Available Gilenya 0.5 mg capsule active Not Available Not Available Not Available Melatonin (with B6) 01/27 completed Not Available Not Available Not Available Multi Vitamin active Not Available Not Available Not Available omega 3 183.3 mg-dha 75 mg-epa 91.6 mg-fish oil 306 mg capsule Take by oral route. active pro omega Not Available Not Available Not Available Vitamin B12 active Not Available Not Available Not Available Centrum ProNutrie nts [place]-3 12/10 completed Not Available Not Available Not Available Vitals Date Recorded Body height Body mass index (BMI) Body weight Heart rate Systolic And Diastolic Provider Name and Address Organization Details Last Updated DateTime 11/02/2016 177.17 cm 19.7 kg/m2 34482.56 g 55 /min 99/65 mm[Hg] Deana Dingpato Tompkins in [facility], 11/02/2016 14:51:04 Date Recorded Body weight Body mass index (BMI) Body height Heart rate Systolic And Diastolic Provider Name and Address Organization Details Last Updated DateTime 12/04/2017 96948.04 g 19.4 kg/m2 175.26 cm 67 /min 98/70 mm[Hg] Nicole Tompkins in [facility], 12/04/2017 14:53:03 Date Recorded Body height Body mass index (BMI) Body weight Heart rate Systolic And Diastolic Provider Name and Address Organization Details Last Updated DateTime 12/10/2018 175.26 cm 20 kg/m2 96172.13 g 75 /min 107/80 mm[Hg] Nicole Tompkins in [facility], 12/10/2018 14:07:57 Date Recorded Body height Body mass index (BMI) Body weight Body temperature Heart rate Systolic And Diastolic Provider Name and Address Organization Details Last Updated DateTime 0 175.26 cm 19.1 kg/m2 03861.5 7 g 97.3 [degF] 59 /min 101/48 mm[Hg] Holly Tompkins in [facility], 0 10:51:24 Date Recorded Body height Body mass index (BMI) Body weight Body temperature Heart rate Systolic And Diastolic Provider Name and Address Organization Details Last Updated DateTime 1 175.26 cm 18.5 kg/m2 85493.0 5 g 97.4 [degF] 64 /min 98/68 mm[Hg] Holly Tompkins in [facility], 1 13:48:53 Social History Question Answer Notes LastModified by Organizat ion Details LastModified Time Tobacco Smoking Status Former Smoker Not Available [facility] 03/16/2020 03:19:40 How Many Years Have You Consumed Alcohol? 34 Information not available 01/27/2021 Are You Blind Or Do You Have Difficulty Seeing? No [id number] Information not available 03/16/2020 What Is Your Level Of Caffeine Consumption? Moderate [id number] Information not available 03/16/2020 In The 14 Days Before Symptom Onset, Have You Had Close Contact With A Laboratory-confir med COVID-19 While That Case Was Ill? No Information not available 01/27/2021 In The 14 Days Before Symptom Onset, Have You Had Close Contact With A Person Who Is Under Investigation For COVID-19 While That Person Was Ill? No Information not available 01/27/2021 Have You Been To An Area Known To Be High Risk For COVID-19? No Information not available 01/27/2021 Are You Deaf Or Do You Have Serious Difficulty Hearing? No [id number] Information not available 03/16/2020 What Type Of Diet Are You Following? REGULAR [id number] Information not available 03/16/2020 Which Illicit Or Recreational Drugs Have You Used? No [id number] Information not available 03/16/2020 Do You Reside In Or Have You Traveled To An Area Where Ebola Virus Transmission Is Active? No [id number] Information not available 03/16/2020 Education 2 Year College Information not available 11/04/2013 What Is The Highest Grade Or Level Of School You Have Completed Or The Highest Degree You Have Received? [id number] Information not available 01/27/2021 How Many Days In The Past Year Have You Had A Heavy Drinking Consumption (4+ Female, 5+ Male)? 0 Information no t available 10/31/2016 Are There Any Guns Present In Your Home? No Information not available 01/27/2021 High Number Of Sexual Partners Yes Information not available 10/31/2016 To Which Gender Do You Self-identify? Female Information not available 10/31/2016 Marital Status Informatio n not available 11/04/2013 What Was The Date Of Your Most Recent Tobacco Screening? 01/27/2021 Information not available 01/27/2021 Are You Sexually Active? No Very Rare. [id number] Information not available 03/16/2020 How Much Tobacco Do You Smoke? No [id number] Information not available 03/16/2020 General Stress Level Low Information not available 10/31/2016 How Many Years Have You Smoked Tobacco? 20 [id number] Information not available 03/16/2020 Do You Have Difficulty Walking Or Climbing Stairs? No [id number] Information not available 03/16/2020 Have You Recently (within The Last 12 Weeks, Or During A Current ) Traveled To Or Lived In A Zika-affected Area? No Information not available 10/31/2016 How Many Days In The Past Year Have You Consumed 4 Or More Drinks? 0 Information no t available 01/27/2021 Sex: Female Functional Status Question Answer Note LastModified by Organizat ion Details LastModified Time Do you use any illicit or recreational drugs? No Information not available 01/27/2021 Do you or have you ever used any other forms of tobacco or nicotine? No Information not available 01/27/2021 What is your level of alcohol consumption? Occasional [id number] Information not available 03/16/2020 Do you or have you ever used smokeless tobacco? Never used smokeless tobacco [id number] Information not available 03/16/2020 Are you currently employed? Yes Information not available 01/27/2021 Do you have difficulty doing errands alone? 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 Information not available 12/19/2019 Do you have difficulty dressing, bathing, grooming, or toileting? No [id number] Information not available 03/16/2020 Do you or have you ever used e-cigarettes or vape? Never used electronic cigarettes [id number] Information not available 03/16/2020 What is your exercise level? Heavy [id number] Information not available 03/16/2020 Mental Status Question Answer Note LastModified by Organizat ion Details LastModified Time Do you feel stressed (tense, restless, nervous, or anxious, or unable to sleep at night)? [id number] Information not available 01/27/2021 Do you have difficulty concentrating, remembering or making decisions? No [id number] Information no t available 03/16/2020 Family History Relationship Description Onset Age of this Age Resolved Age Notes LastModified by Organization Details LastModified Time Mother Malignant neoplasm of ovary 52 Not available 02/12 15:53:50 Maternal Grandmother Problem 68 pancre atic Not available 03/03/2014 15:53:50 Father Alzheimer's disease 95 [email or web address] Not available 2018 14:09:30 Sister Depressive disorder [email or web address] Not available 2018 14:09:40 Medical History Condition Response Anesthesia complications N High Blood Pressure N Candidate for MyRisk panel N Autoimmune Condition Y Thyroid Problems N Kidney or Bladder Problems Y GI Problems Y Lung Disease N Depression N Defects or Inherited Disease N History of Ovarian Cancer N Anemia N History of Breast Cancer N JULIANA exposure N BRCA testing in past Y Osteopenia N Psychiatric Illness N Anxiety Disorder N Diabetes N Arthritis N Headaches or Migraines N Infertility N Asthma N History of Cancer Y Endometriosis N Hepatitis N Heart Disease N Hypertension N Osteoporosis N Gynecological History Statement/Question Response Dysmenorrhea N If Post Menopausal, Age at Menopause 51 Flow Moderate Date of LMP 02/03/2014 Menses Monthly N Age at Menarche 13 Current Control Method None Age at First Child 1 Obstetrics History GPAL:G 0 P 0 0 0 0 Type Value Living 0 Total 0 Immunizations Vaccine Type Date Status Note Provider Nam e and Address Organization Details Recorded Time COVID-19, mRNA, LNP-S, PF, 100 mcg/0.5mL dose or 50 mcg/0.25mL dose 08/28/2020 completed SHAHID Smith in [facility], 01/27/2021 13:52:59 COVID-19, mRNA, LNP-S, PF, 100 mcg/0.5mL dose or 50 mcg/0.25mL dose 09/26/2020 completed SHAHID Smith in [facility], 01/27/2021 13:53:09 Past Encounters Encounter ID Performer Location Encounter Start Date Encounter Closed Date Diagnosis/Indication Diagnosis SNOMED-CT Code Diagnosis ICD10 Code Diagnosis IMO Codes Diagnosis Note [id number] MD CASSANDRA Reid MD [address] [facility] [place] [address] 11/04/2013 14:07:51 11/05/2013 07:51:43 Specialized medical examination [id number] Screening for malignant neoplasm of rectum 491147908 Screening mammography 51033262 Increased frequency of urination 853616321 Family his tory of malignant neoplasm of ovary 125974838 [id number] MD CASSANDRA Reid MD [address] [facility] [address] 02/02/2014 14:02:37 02/02/2014 16:01:23 Family history of malignant neoplasm of ovary 169954960 [id number] MD CASSANDRA Reid MD [address] [facility] [address] 03/03/2014 15:20:04 03/03/2014 16:16:33 Genetic mutation 29420283 Family his tory of malignant neoplasm of ovary 335894427 [id number] MD CASSANDRA Reid MD [address] [facility] [address] 10/31/2016 13:57:53 10/31/2016 15:07:52 Specialized medical examination 41127620 Z01.419 Screening for malignant neoplasm of rectum 977065259 Z12.12 Screening mammography 24 110883 Z12.31 Multiple sclerosis 51264 007 G35 [id number] MD CASSANDRA Reid MD [address] [facility] [address] 11/02/2016 14:31:49 11/02/2016 16:04:09 Candidal vulvovaginitis 92865960 B37.3 Disorder o f breast implant 550679504 T85.9XXA Multiple sclerosis 85495 007 G35 Vaginitis 57484093 N76.0 [id number] MD CASSANDRA Reid MD [address] [facility] [address] 12/04/2017 14:40:01 12/05/2017 07:49:32 Specialized medical examination 92986091 Z01.419 Screening for malignant neoplasm of rectum 470934287 Z12.12 Screening mammography 24 905339 Z12.31 [id number] Cassandra MD CASSANDRA Paz MD [address] [facility] [place] [address] 12/10/2018 14:00:16 12/10/2018 15:44:39 Specialized medical examination 42692362 Z01.419 Screening for malignant neoplasm of rectum 367358688 Z12.12 Screening mammography 24 087506 Z12.31 Multiple sclerosis 28995 007 G35 Increased frequency of urination 185800590 R35.0 [id number] MD CASSANDRA Reid MD [address] [facility] [place] [address] 12/19/2019 10:46:19 12/19/2019 12:03:03 Specialized medical examination 37436838 Z01.419 Screening for malignant neoplasm of rectum 045993082 Z12.12 Screening mammography 24 872452 Z12.31 Herpes zoster 3365247 B0 2.9 [id number] MD CASSANDRA Reid MD [address] [facility] [place] [address] 01/27/2021 13:44:03 01/27/2021 15:11:22 Specialized medical examination 35148048 Z01.419 Screening for malignant neoplasm of rectum 944725062 Z12.12 Screening mammography 24 021112 Z12.31 Family his tory of malignant neoplasm of ovary 833074657 Z80.41 Mass of left breast 1224 597042 6824600 N63.21 Health Concerns Section Related Observation LastModified by Organization Detai ls LastModified Time None Recorded Concern Status LastModified by Organization Details LastModified Time None Recorded Advance Directives Directive None Recorded Payers Insurance Date Sequence Insurance Name Policy Number Policy Gomes Covered Member ID Gomes Member ID Guarantor Name 12/19/2019 1 [place] [id number] Nemesio Riggins [id number] Marilin Morris 01/24/2021 1 [employer] (POS) Nemesio Riggins [id number] Marilin Morris Notes Date Note Type Note Provider Name and Address Organization Details Recorded Time 11/02/2016 text/html She is here for follow up of abundant obscuring inflammation on her pap. She has taken two strong antibiotics for dental work recently. Cassandra Paz MD [address] [facility],[address], [place], [address], [facility] in [facility], 11/02/2016 15:20:49 12/04/2017 text/html She is here for annual exam, is doing well. She had breast surgery 6 weeks ago, with Dr. Vargas, to remove her encapsulated breast implants. She is not happy because she feels they are not large enough and there are three ripples. She notes she is not having significant vasomotor symptoms. She does have a many year history of urinating too frequently for at least 8 years. She is seeing a urologist who specializes in MS patients. She takes unisom nightly and also melatonin in order to sleep, she would like to begin ambien. She has been taking sleeping pills for more than 10 years. Note from 10/2016: She also notes her encapsulated breasts were too tender to have a mammogram the other day. she had a mammo 3 years ago, but now when she tried again she noted they had to terminate the procedure because it was too painful. the silicone implants were noted to be encapsulated on her prior exam here. She is advised to see a plastic surgeon for consultation for this. The letter is printed for her, and a copy sent to Dr. Wood. Cassandra Paz MD [address] [facility],[address], [place], [address], [facility], 12/04/2017 16:13:22 12/10/2018 text/html She is here for annual exam, is doing well. 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 Her MS has been stable, still awaiting the recent MRI results. She has no symptoms. Her vasomotor symptoms are improving slowly. She tried to adriana Dr. Vargas but no roll scale worker would take my case, she had her breast surgery redone in [place] in April, :I, happy with them now. Note from 2018: She is here for annual exam, is doing well. She had breast surgery 6 weeks ago, with Dr. Vargas, to remove her encapsulated breast implants. She is not happy because she feels they are not large enough and there are three ripples. She notes she is not having significant vasomotor symptoms. She does have a many year history of urinating too frequently for at least 8 years. She is seeing a urologist who specializes in MS patients. She takes unisom nightly and also melatonin in order to sleep, she would like to begin ambien. She has been taking sleeping pills for more than 10 years. Cassandra Paz MD [address] [facility] [address] [place] [facility], 12/10/2018 15:42:41 12/19/2019 text/html She is here for annual exam, had shingles 3 weeks ago, still healing from it. She is taking an MS med that might impair her immune system, she spoke with her neurologist about this yesterday. It is healing well. Note from 2019: She is here for annual exam, is doing well. 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 She has not had menses in 2 eyars. She has nocturia, increased frequency of urination, she believes this is due to her MS, though there could be a component of atrophy as well. She believes it has worsened in the past year. Her MS has been stable, still awaiting the recent MRI results. She has no symptoms. Her vasomotor symptoms are improving slowly. She tried to adriana Dr. Vargas but no roll scale worker would take my case, she had her breast surgery redone in [place] in April, :I, happy with them now. Shehad the textured implants out from over the muscle, put new non teextured implants under the muscle, and did a lift, and she is happy now. Cassandra Paz MD [address] [facility],[address], [place], [address], [place] - [facility], 12/19/2019 11:33:48 01/27/2021 text/html She is here for annual exam, has MS, is stable. She had her silicone breast implants removed and replace in 2018, she had some issues, now after repeat surgery that is resolved. Note from 2020: She is here for annual exam, had shingles 3 weeks ago, still healing from it. She is taking an MS med that might impair her immune system, she spoke with her neurologist about this yesterday. It is healing well. Cassandra Paz MD [address] [facility],[address], [place], [address], [place] - [facility], 01/27/2021 14:45:34 OBGyn Episode No OBEpisode recorded.
== END 2025-05-05 12:15 | disposition home or self-care (01) ==
LOC: HO.HMCFMS 11:24
PROVIDERS: PCP Student in an Organized Health Care Education/Training Program; Visit Provider Student in an Organized Health Care Education/Training Program
DX: G35.D Multiple sclerosis, unspecified (principal); Z12.4 Encounter for screening for malignant neoplasm of cervix; R32 Unspecified urinary incontinence; R25.1 Tremor, unspecified; F51.04 Psychophysiologic insomnia; K59.00 Constipation, unspecified